=== PATIENT | female | born 1965 | race Caucasian/White ===

== ENCOUNTER 2019-07-01 11:47 | Emergency (ER) | payer MEDICAID ==
--- NOTE | 2019-07-01 12:29 | Emergency Department Record ---
History of Present Illness - General Chief Complaint: Abdominal Pain Stated Complaint: IMPACTED Time Seen by Provider: 07/01/19 12:21 Source: Patient, RN notes reviewed Mode of Arrival: Ambulatory - History of Present Illness Initial Comments: patient states she is constipation and last BM 3-4 days ago and ran out of stool softener and miralax 10 days ago and she was here with the [facility]aias thing three weeks ago. Onset/Timin -: Days(s) Severity: Moderate Severity scale (1-10): 10 Quality: Aching, Cramping Consistency: Constant Improves With: Nothing Worsens With: Nothing - Related Data Home Medications Medication Instructions Recorded Confirmed Last Taken Empagliflozin [Jardiance] 25 mg PO DAILY 07/01/19 07/01/19 1 Day Ago ~06/30/19 Previous Rx's Medication Instructions Recorded Docusate Sodium [Colace] 100 mg PO BID #30 cap 05/14/19 Polyethylene Glycol 3350 [Miralax] 17 gm PO DAILY #20 packet 05/14/19 Allergies Allergy/AdvReac Type Severity Reaction Status Date / Time amoxicillin [From Amoxil] Allergy RASH Verified 07/01/19 12:06 codeine Allergy RASH Verified 07/01/19 12:06 hydrocodone Allergy RASH Verified 07/01/19 12:06 Penicillins Allergy ANAPHYLAXIS Verified 07/01/19 12:06 Sulfa (Sulfonamide Allergy RASH Verified 07/01/19 12:06 Antibiotics) tramadol Allergy RASH Verified 07/01/19 12:06 Travel/Exposure Screening - Travel/Exposure Within Last 30 Days Have you traveled within the last 30 days?: No - Travel/Exposure Within Last Year Have you traveled outside the [place] in the last year?: No - Additonal Travel/Exposure Details Have you been exposed to anyone with a communicable illness?: No - Travel Symptoms Symptom Screening: None Review of Systems Reviewed: No additional complaints except as noted below Constitutional: Reports: As per HPI. Denies: Chills, Fever, Malaise, Night sweats, Weakness, Weight change Eyes: Reports: As per HPI. Denies: Eye discharge, Eye pain, Photophobia, Vision change ENT: Reports: As per HPI. Denies: Congestion, Dental pain, Ear pain, Epistaxis, Hearing loss, Throat pain Respiratory: Reports: As per HPI. Denies: Cough, Dyspnea, Hemoptysis, Stridor, Wheezes Cardiovascular: Reports: As per HPI. Denies: Arrhythmia, Chest pain, Dyspnea on exertion, Edema, Murmurs, Orthopnea, Palpitations, Paroxysmal nocturnal dyspnea, Rheumatic Fever, Syncope Endocrine: Reports: As per HPI. Denies: Fatigue, Heat or cold intolerance, Polydipsia, Polyuria Gastrointestinal: Reports: As per HPI. Denies: Abdominal pain, Constipation, Diarrhea, Hematemesis, Hematochezia, Melena, Nausea, Vomiting Genitourinary: Reports: As per HPI. Denies: Abnormal menses, Discharge, Dyspareunia, Dysuria, Frequency, Hematuria, Incontinence, Retention, Urgency Musculoskeletal: Reports: As per HPI. Denies: Arthralgia, Back pain, Gout, Joint swelling, Myalgia, Neck pain Skin: Reports: As per HPI. Denies: Bruising, Change in color, Change in hair/nails, Lesions, Pruritus, Rash Neurological: Reports: As per HPI. Denies: Abnormal gait, Confusion, Headache, Numbness, Paresthesias, Seizure, Tingling, Tremors, Vertigo, Weakness Psychiatric: Reports: As per HPI. Denies: Anxiety, Auditory hallucinations, Depression, Homicidal thoughts, Suicidal thoughts, Visual hallucinations Hematological/Lymphatic: Reports: As per HPI. Denies: Anemia, Blood Clots, Easy bleeding, Easy bruising, Swollen glands Past Medical History - SOCIAL HISTORY Smoking Status: Never smoker Alcohol Use: None Drug Use: None - RESPIRATORY Hx Respiratory Disorders: No - CARDIOVASCULAR Hx Cardio Disorders: No - NEURO Hx Neuro Disorders: No - GI Hx GI Disorders: No - Hx Genitourinary Disorders: No - ENDOCRINE Hx Endocrine Disorders: Yes Hx Diabetes: Yes Hx Thyroid Disease: Yes - MUSCULOSKELETAL Hx Musculoskeletal Disorders: No - PSYCH Hx Psych Problems: No - HEMATOLOGY/ONCOLOGY Hx Hematology/Oncology Disorders: No Family Medical History Any Significant Family History?: Yes Physical Exam - General General Appearance: Alert, Oriented x3, Cooperative, No acute distress - Head Head exam: Normal inspection - Eye Eye exam: Normal appearance, PERRL Pupils: Normal accommodation - ENT ENT exam: Normal exam, Mucous membranes moist, Normal external ear exam, Normal orophraynx, TM's normal bilaterally Ear exam: Normal external inspection. negative: External canal tenderness Nasal Exam: Normal inspection. negative: Discharge, Sinus tenderness Mouth exam: Normal external inspection, Tongue normal Teeth exam: Normal inspection. negative: Dental caries Throat exam: Normal inspection. negative: Tonsillar erythema, Tonsillar exudate - Neck Neck exam: Normal inspection, Full ROM. negative: Tenderness - Respiratory Respiratory exam: Normal lung sounds bilaterally. negative: Respiratory di stress - Cardiovascular Cardiovascular Exam: Regular rate, Normal rhythm, Normal heart sounds - GI/Abdominal GI/Abdominal exam: Soft, Normal bowel sounds, Tenderness (lower abdominal pain) - Rectal Rectal exam: Heme (-) stool, Other (brown stool) - exam: Deferred - Extremities Extremities exam: Normal inspection, Full ROM, Normal capillary refill. negative: Tenderness - Back Back exam: Reports: Normal inspection, Full ROM. Denies: Muscle spasm, Rash noted, Tenderness - Neurological Neurological exam: Alert, Normal gait, Oriented X3, Reflexes normal - Psychiatric Psychiatric exam: Normal affect, Normal mood - Skin Skin exam: Dry, Intact, Normal color, Warm Course Vital Signs 07/01/19 12:00 Temperature 98.2 F Pulse Rate [ 99 H Pulse Ox Probe] Respiratory 20 Rate Blood Pressure 117/72 [Left Arm] Pulse Ox 100 - Reevaluation(s) Reevaluation #1: 07/01/19 15:25 feeling better Reevaluation #2: recheck of abd soft and not painful on palpation advised important to see her Dr in 2 to 5 days 07/01/19 15:30 Medical Decision Making - Lab Data Result diagrams: 07/01/19 13:55 07/01/19 13:55 Disposition Clinical Impression: Constipation Qualifiers: Constipation type: slow transit constipation Qualified Code(s): K59.01 - Slow t ransit constipation Disposition: Home, Self-Care Condition: (1) Good Instructions: Constipation (ED) Additional Instructions: fluids use miralax 17 gms twice a day follow up with family Dr in 2 days increase fiber in diet Forms: Patient Portal Access Time of Disposition: 15:31 Quality - Quality Measures Quality Measures: N/A - Blood Pressure Screening Does Patient Have Any of the Following: No Blood Pressure Classification: Normal BP Reading Systolic Measurement: 112 Diastolic Measurement: 65 Screening for High Blood Pressure: < Normal BP, F/U Not Required > [G8783]
[2019-07-01] MEDS ORDERED: DEXTROSE IV ONE (12:53)
[2019-07-01] MEDS ORDERED: LACTATED RINGERS IV ONE (12:53)
[2019-07-01 14:03] LABS: ABSOLUTE NEUTROPHIL COUNT 8.57; HEMATOCRIT 43.3 % (35.0-47.0); HEMOGLOBIN 13.2 gm/dl (11.6-16.0); MEAN CELL VOLUME 87.1 fl (81-97); MEAN CORPUSCULAR HEMOGLOBIN 26.6 pg (27-33); MEAN CORPUSCULAR HGB CONC 30.5 g/dl (32-36); PLATELET COUNT 226 K/uL (130-400); RED BLOOD COUNT 4.97 M/uL (3.80-5.40); RED CELL DISTRIBUTION WIDTH 14.4 % (11.5-14.5); WHITE BLOOD COUNT W/O DIFF 10.2 K/uL (4.2-12.2)
[2019-07-01] MEDS ORDERED: ACETAMINOPHEN 1,000 MG/100 ML BTL IVPB ONE (14:05)
[2019-07-01 14:15] LABS: PLATELET ESTIMATE NORMAL (NORMAL)
[2019-07-01] MEDS ORDERED: 0.9 % SODIUM CHLORIDE 500ML 500 ML IV SCH (14:15)
[2019-07-01 14:16] LABS: BLOOD UREA NITROGEN 12 mg/dL (6-20)
[2019-07-01 14:17] LABS: CREATININE 0.7 mg/dL (0.5-0.9); EST GLOMERULAR FILTRATION RATE > 60 mL/min; TOTAL PROTEIN 7.3 g/dL (6.6-8.7)
[2019-07-01 14:18] LABS: LIPASE 3 U/L (13-60)
[2019-07-01 14:19] LABS: GLUCOSE,RANDOM 164 mg/dL (74-109)
[2019-07-01 14:22] LABS: ALBUMIN 4.5 g/dL (4.0-5.0); ALKALINE PHOSPHATASE 58 U/L (35-104); ALT/SGPT 13 U/L (<33); AST/SGOT 15 U/L (10.0-35.0)
[2019-07-01 14:23] LABS: BILIRUBIN,DIRECT < 0.2 mg/dL (0-0.3)
--- NOTE | 2019-07-01 15:00 | RADIOLOGY REPORT ---
EXAMINATION: Abdomen Complete EXAM DATE: 07/01/2019 2:45 PM TECHNIQUE: Supine and upright views INDICATION: abd pain ,constipation. The technologist elicited the history: Ongoing constipation. COMPARISON: Abdomen radiographs, 05/14/2019. ENCOUNTER: Not applicable FINDINGS: Free Intraperitoneal Air: None. Bowel: Normal. There remains a moderate to marked amount retained stool throughout the colon. Abnormal Calcifications: Multiple stable calcifications in the left pelvis. Diffuse arterial calcific ations. Bones: Unremarkable. Other Findings: None. CT of the abdomen and pelvis could be helpful in further evaluation. IMPRESSION: Moderate to marked amount retained stool. Dictated by: Cyn Pelayo MD on 07/01/2019 2:57 PM. .
== END 2019-07-01 15:48 | disposition home or self-care (01) ==
LOC: ER 11:47
DX: K59.01 Slow transit constipation (principal)
CPT/HCPCS: 74019; 80048; 80076; 83690; 85027; 96365; 99284; J7040